=== PATIENT | male | born 1980 | race Caucasian/White ===

== ENCOUNTER 2022-05-12 10:53 | Outpatient (CLI) | payer SELFPAY ==
[2022-05-12 21:57] LABS: Albumin* 4.9 g/dL (3.3-5.0); Chloride* 103 mmol/L (96-114)
[2022-05-12 21:58] LABS: Sodium* 140 mmol/L (135-149)
[2022-05-12 22:00] LABS: Alkaline Phosphatase* 64 U/L (40-150); Aspartate Amino Transferase* 28 U/L (12-35); Bilirubin Direct* 0.3 mg/dL (0.0-0.5); Bilirubin Total* 0.6 mg/dL (0.1-1.5); Blood Urea Nitrogen* 18 mg/dL (5-24); Carbon Dioxide* 32 mmol/L (20-32); Cholesterol* 187 mg/dL (90-199); Creatinine* 1.2 mg/dL (0.5-1.5); Estimated Glomerular Filt Rate 77 ml/min; Glucose* 105 mg/dL (60-115); Total Protein* 7.5 g/dL (6.0-8.3); Triglycerides* 96 mg/dL (40-149)
[2022-05-12 22:01] LABS: Alanine Aminotransferase* 42 U/L (4-50); Calcium* 9.6 mg/dL (8.4-10.6); HDL Cholesterol* 42 mg/dL (>=40); LDL Cholesterol Calculated 126 mg/dL (<100)
== END 2022-05-12 10:54 | disposition home or self-care (01) ==
PROVIDERS: PCP Family Medicine; Visit Provider Family Medicine
DX: Z00.00 Encounter for general adult medical examination without abnormal findings (principal); R79.89 Other specified abnormal findings of blood chemistry; Z13.6 Encounter for screening for cardiovascular disorders
CPT/HCPCS: 80048; 80061; 80076

== ENCOUNTER 2023-07-09 14:14 | Outpatient (CLI) | payer OTHER, SELFPAY | END 2023-07-09 14:15 | disposition home or self-care (01) | PROVIDERS: PCP Family Medicine; Visit Provider Family Medicine | DX: E78.00 Pure hypercholesterolemia, unspecified (principal); R79.89 Other specified abnormal findings of blood chemistry | CPT/HCPCS: 80053; 80061 ==

== ENCOUNTER 2024-03-16 10:19 | Inpatient (IN) | payer BC, SELFPAY ==
[2024-03-16] VITALS (43 sets, daily range): BP systolic 102–140; BP diastolic 59–79; PULSE 64–120; RESP 16–24; TEMP 37.2–37.7; O2SAT 85–93; BMI 23.1; BMI 26.4
--- NOTE | 2024-03-16 11:06 | ED.SOB ---
HPI - SOB/Dyspnea General Chief Complaint: Shortness of Breath/Dyspnea Stated Complaint: clinic said to come in pnemonia Time Seen by Provider: 03/16/24 10:49 History of Present Illness HPI Narrative: This 43 year old male presented to urgent care and was sent here because his oximetry was at 90% on room air. He states that he began having some upper respiratory symptoms almost 3 weeks ago as did other members in his family. About 10 days ago he had worsening symptoms with fever lasting about 4 days with body aches and pains, cough, and congestion. He was thinking that he had the flu. He improved but more recently he feels short of breath. He continues to have a cough. He had a chest x-ray done at urgent care and was sent here. Related Data Home Medications ?Medication ?Instructions ?Recorded ?Confirmed No Known Home Medications 05/12/22 03/16/24 Allergies Allergy/AdvReac Type Severity Reaction Status Date / Time No Known Allergies Allergy Unknown Unknown Verified 03/16/24 10:27 Review of Systems Status of ROS: Reports: 10 or more systems reviewed and unremarkable except as noted in History and below Narrative: Constitutional: No fevers, no weight gain or loss. Eyes: No discharge. No vision changes. HENT: No congestion, no sore throat, no ear pain. Cardiovascular: No chest pain, no palpitations. Respiratory: Cough with shortness of breath. Gastrointestinal: No abdominal pain, no vomiting, no diarrhea. Genitourinary: No dysuria, no hematuria. Musculoskeletal: Normal range of motion. Skin: No rashes, no pruritis. Neurological: No dizziness, weakness, sensory change, speech change. Endo/Heme/Allergies: No bruising or bleeding. No polydipsia. Pysch: no suicidality, no anxiety, no insomnia. All other systems reviewed and are negative. [facility] Medical History (Updated 03/16/24 @ 15:00 by Amando Walsh MD) Hypercholesteremia ?E78.00 - Pure hypercholesterolemia, unspecified (ICD-10) Triquetral chip fracture ?S62.113A - Displaced fracture of triquetrum [cuneiform] bone, unspecified wrist, initial encounter for closed fracture (ICD-10) Family History (Updated 05/09/22 @ 08:03 by Jeana Cerna ~ PSR) Maternal Grandfather Heart disease, Onset Age: 60 Family/Other Prostate cancer Social History (Updated 09/14/22 @ 13:03 by Daria Maddox ~ [facility], [facility]) Narrative: Non smoker Does not use illicit drugs Does not drink alcohol Smoking Status: Former smoker What tobacco products do you use: cigarettes Smoking quit date/years: >15 years ago Caffeine: Yes Exam Narrative: Exam Narrative: Constitutional: Well-developed, well-nourished, no acute distress. HEENT: Normocephalic, atraumatic. Neck: Normal range of motion. Nontender. Supple. Heart: Regular. No murmurs. Normal rate. Intact distal pulses. Lungs: No use of accessory muscles for breathing. The patient coughs when taking a deep breath. Shallow breaths are clear bilaterally. Abdomen: Normal bowel sounds. Nontender. No rebound tenderness. Genitalia: Deferred. Back: No midline tenderness. Normal range of motion. Extremities: Normal range of motion. No injury. Skin: Intact. No rash. Warm. No erythema or pallor. Neurologic: No altered sensation. No weakness. Alert and oriented. Psychiatric: No suicidality. No anxiety or depression. No insomnia. Nursing notes and vitals signs are reviewed. Const: Vital Signs, click to edit/add: Vital Signs - 24 hr 03/16/24 10:23 03/16/24 10:28 03/16/24 10:35 Temperature 99.8 F H Pulse Rate Pulse Rate [Right Pulse Oximeter] 110 H Respiratory Rate 24 Blood Pressure Blood Pressure [Ri ght Upper Arm] 140/79 H Pulse Oximetry 90 89 88 Oxygen Delivery Me thod Room Air Nasal Cannula Room Air Oxygen Flow Rate 1 03/16/24 10:39 03/16/24 10:41 03/16/24 10:45 Temperature Pulse Rate 99 95 Pulse Rate [Right Pulse Oximeter] Respiratory Rate Blood Pressure Blood Pressure [Ri ght Upper Arm] Pulse Oximetry 90 88 88 Oxygen Delivery Me thod Nasal Cannula Nasal Cannula Oxygen Flow Rate 2 2 2 03/16/24 11:00 03/16/24 11:02 03/16/24 11:15 Temperature Pulse Rate 100 99 93 Pulse Rate [Right Pulse Oximeter] Respiratory Rate Blood Pressure 121/78 Blood Pressure [Ri ght Upper Arm] Pulse Oximetry 86 L 92 86 L Oxygen Delivery Me thod Nasal Cannula Nasal Cannula Nasal Cannula Oxygen Flow Rate 2 2 2 03/16/24 11:30 03/16/24 11:32 03/16/24 11:45 Temperature Pulse Rate 120 H 109 H 111 H Pulse Rate [Right Pulse Oximeter] Respiratory Rate Blood Pressure 122/71 Blood Pressure [Ri ght Upper Arm] Pulse Oximetry 90 86 L 85 L Oxygen Delivery Me thod Nasal Cannula Nasal Cannula Nasal Cannula Oxygen Flow Rate 2 3 3 03/16/24 12:00 03/16/24 12:02 03/16/24 12:15 Temperature Pulse Rate 110 H 110 H 108 H Pulse Rate [Right Pulse Oximeter] Respiratory Rate Blood Pressure 116/77 Blood Pressure [Ri ght Upper Arm] Pulse Oximetry 88 87 L 93 Oxygen Delivery Me thod Nasal Cannula Nasal Cannula Nasal Cannula Oxygen Flow Rate 3 2 2 03/16/24 12:30 03/16/24 12:32 03/16/24 12:45 Temperature Pulse Rate 93 107 H 103 H Pulse Rate [Right Pulse Oximeter] Respiratory Rate Blood Pressure 107/67 Blood Pressure [Ri ght Upper Arm] Pulse Oximetry 92 89 88 Oxygen Delivery Me thod Nasal Cannula Nasal Cannula Nasal Cannula Oxygen Flow Rate 2 2 2 03/16/24 13:00 03/16/24 13:02 03/16/24 13:03 Temperature Pulse Rate 97 92 92 Pulse Rate [Right Pulse Oximeter] Respiratory Rate Blood Pressure 102/76 Blood Pressure [Ri ght Upper Arm] Pulse Oximetry 89 91 89 Oxygen Delivery Me thod Nasal Cannula Nasal Cannula Nasal Cannula Oxygen Flow Rate 2 2 2 03/16/24 13:15 03/16/24 13:30 03/16/24 13:32 Temperature Pulse Rate 92 100 94 Pulse Rate [Right Pulse Oximeter] Respiratory Rate Blood Pressure 112/78 Blood Pressure [Ri ght Upper Arm] Pulse Oximetry 88 87 L 88 Oxygen Delivery Me thod Nasal Cannula Nasal Cannula Nasal Cannula Oxygen Flow Rate 2 2 2 03/16/24 13:45 03/16/24 14:00 03/16/24 14:07 Temperature Pulse Rate 90 91 96 Pulse Rate [Right Pulse Oximeter] Respiratory Rate Blood Pressure 117/74 Blood Pressure [Ri ght Upper Arm] Pulse Oximetry 87 L 85 L 89 Oxygen Delivery Me thod Nasal Cannula Nasal Cannula Nasal Cannula Oxygen Flow Rate 2 2 2 03/16/24 14:08 03/16/24 14:15 03/16/24 14:30 Temperature Pulse Rate 95 94 98 Pulse Rate [Right Pulse Oximeter] Respiratory Rate Blood Pressure Blood Pressure [Ri ght Upper Arm] Pulse Oximetry 87 L 86 L 86 L Oxygen Delivery Me thod Nasal Cannula Nasal Cannula Nasal Cannula Oxygen Flow Rate 2 2 2 03/16/24 14:32 03/16/24 14:45 Temperature Pulse Rate 98 105 H Pulse Rate [Right Pulse Oximeter] Respiratory Rate Blood Pressure 112/68 Blood Pressure [Ri ght Upper Arm] Pulse Oximetry 87 L 89 Oxygen Delivery Me thod Nasal Cannula Nasal Cannula Oxygen Flow Rate 2 2 Course Vital Signs Vital signs: Initial Vital Signs Temperature 99.8 F H 03/16/24 10:23 Temperature Source Temporal Artery Scan 03/16/24 10:23 Pulse Rate 110 H 03/16/24 10:23 Pulse Rhythm Regular 03/16/24 10:23 Respiratory Rate 24 03/16/24 10:23 Blood Pressure 140/79 H 03/16/24 10:23 Blood Pressure Mean 99 03/16/24 10:23 Blood Pressure Position Supine 03/16/24 10:23 Pulse Oximetry 90 03/16/24 10:23 Oxygen Delivery Method Room Air 03/16/24 10:23 Vital Signs Temperature 99.8 F H 03/16/24 10:23 Pulse Rate 110 H 03/16/24 10:23 Respiratory Rate 24 03/16/24 10:23 Blood Pressure 140/79 H 03/16/24 10:23 Pulse Oximetry 90 03/16/24 10:23 Oxygen Delivery Method Room Air 03/16/24 10:23 Temperature 99.8 F H 03/16/24 10:23 Pulse Rate 105 H 03/16/24 14:45 Respiratory Rate 24 03/16/24 10:23 Blood Pressure 112/68 03/16/24 14:32 Pulse Oximetry 89 03/16/24 14:45 Oxygen Delivery Method Nasal Cannula 03/16/24 14:45 Oxygen Flow Rate 2 03/16/24 14:45 Medications Administered Medications: Discontinued Medications Generic Name Dose Route Start Last Admin Trade Name Freq PRN Reason Stop Dose Admin Albuterol/Ipratropium 1 neb 03/16/24 11:03 03/16/24 11:10 Iprat-Albut 0.5-2.5 Mg/3 Ml Neb IH 03/16/24 11:04 1 neb ONCE ONE Administration Dexamethasone 10 mg 03/16/24 11:03 03/16/24 11:10 Dexamethasone 10 Mg/Ml Inj PO 03/16/24 11:04 10 mg ONCE ONE Administration MDM - SOB/Dyspnea MDM Narrative Medical decision making narrative: This patient comes in with shortness of breath and has oximetry at 88% on room air initially. He was placed on 2 L nasal cannula oxygen and his oximetry still hovers around 90% with this oxygen support. Chest x-ray was obtained at urgent care and shows no acute findings. Labs are acquired here and these are also reassuring. The patient did receive an oral dose of dexamethasone 10 mg and a DuoNeb. Incentive spirometry was also performed to help improve his breathing. There were times when he takes a deep breath that his oximetry can improve but he his baseline continues after a few hours of observation to have oximetry at 88-90% with 2 L oxygen supplementation by nasal cannula. The patient did get up to the restroom and states that he was feeling lightheaded when he did so. I spoke with the hospitalist on-call, Dr. Marinelli, who agrees to his admission into the hospital for ongoing management. Lab Data Labs: Lab Results 03/16/24 Range/Units 10:40 WBC 5.87 (4.50-11.00) K/uL RBC 4.92 (4.30-5.90) m/uL Hgb 15.1 (13.5-17.5) gm/dL Hct 43.8 (37.0-53.0) % MCV 89 (80-100) fL MCH 31 (26-34) pg MCHC 35 (32-36) gm/dL RDW Coeff of Yamileth 11.5 (11.5-15.5) % Plt Count 207 (140-440) K/uL Neut % (Auto) 80.9 H (42.0-72.0) % Lymph % (Auto) 10.4 L (20-44) % [place] % (Auto) 6.0 (0.0-11.0) % Eos % (Auto) 1.2 (0.0-7.0) % Baso % (Auto) 0.3 (0.0-3.0) % Neut # (Auto) 4.70 (1.7-7.0) K/uL Lymph # (Auto) 0.60 L (0.90-2.90) K/uL [place] # (Auto) 0.40 (0.00-0.90) K/UL Eos # (Auto) 0.07 (0.00-0.50) K/uL Baso # (Auto) 0.02 (0.00-0.30) K/uL Abs Immat Gran (auto) 0.07 (0.00-0.30) K/uL Imm/Tot Granulo (auto) 1.2 % Sodium 133 L (135-149) mmol/L Potassium 4.1 (3.6-5.1) mmol/L Chloride 96 (96-114) mmol/L Carbon Dioxide 24 (20-32) mmol/L Anion Gap 13 (7-15) mEq/L BUN 15 (5-24) mg/dL Creatinine 1.0 (0.5-1.5) mg/dL Estimated Creat Clear 102.81 Estimated GFR 95 ml/min Glucose 112 (60-115) mg/dL Calcium 8.7 (8.4-10.6) mg/dL Discharge Plan Discharge Clinical Impression: Hypoxia, Acute lower respiratory infection Prescriptions: No Action No Known Home Medications Follow Up/Referrals: Liban Soni MD [Primary Care Provider] -
[2024-03-16] MEDS: IPRAT-ALBUT 0.5-2.5 MG/3 ML NEB 1 NEB IH (11:10)
[2024-03-16] MEDS: dexAMETHasone 10 MG/ML inj PO (11:10)
[2024-03-16 11:12] LABS: Basophils Absolute Auto 0.02 K/uL (0.00-0.30); Basophils Percent Auto 0.3 % (0.0-3.0); Eosinophils Absolute Auto 0.07 K/uL (0.00-0.50); Eosinophils Percent Auto 1.2 % (0.0-7.0); Hematocrit 43.8 % (37.0-53.0); Hemoglobin* 15.1 gm/dL (13.5-17.5); Immature Granulocytes Abs Auto 0.07 K/uL (0.00-0.30); Immature Granulocytes Pct Auto 1.2 %; Lymphocytes Percent Auto 10.4 % (20-44); Mean Corpuscular HGB Conc 35 gm/dL (32-36); Mean Corpuscular Hemoglobin 31 pg (26-34); Mean Corpuscular Volume 89 fL (80-100); Neutrophils Percent Auto 80.9 % (42.0-72.0); Platelet Count* 207 K/uL (140-440); RDW Coefficient of Variation % 11.5 % (11.5-15.5); Red Blood Count 4.92 m/uL (4.30-5.90); White Blood Count* 5.87 K/uL (4.50-11.00)
[2024-03-16 11:17] LABS: Slide Review Reflex No
[2024-03-16 11:24] LABS: Chloride* 96 mmol/L (96-114); Potassium* 4.1 mmol/L (3.6-5.1); Sodium* 133 mmol/L (135-149)
[2024-03-16 11:26] LABS: Est. Creatinine Clearance* 102.81; Estimated Glomerular Filt Rate 95 ml/min
[2024-03-16 11:27] LABS: Anion Gap 13 mEq/L (7-15); Blood Urea Nitrogen* 15 mg/dL (5-24); Calcium* 8.7 mg/dL (8.4-10.6); Carbon Dioxide* 24 mmol/L (20-32); Glucose* 112 mg/dL (60-115)
[2024-03-16 15:11] LABS: SARS PCR* Negative SARS-CoV-2 (Negative)
--- NOTE | 2024-03-16 15:14 | PM.IMHP1 ---
Hospitalist- H&P: HPI History of Present Illness Date Seen: 03/16/24 Chief complaint: clinic said to come in pnemonia Narrative: Chas Kline is a 43 year old male who presented to the ER at the behest of the Urgent Care for acute hypoxic respiratory failure. He's been sick for approximately 9 days; at onset of illness, had fever of 103 and has had intermittent fevers since. Intermittent cough, decreased appetite, vomiting mid-week (none in the last 72 hours). and children also ill with URI symptoms last week; they have all recovered ( and one daughter treated with abx). Shortness of breath (without chest pain) noted in the past 2 days, which is what prompted his Urgent Care visit this morning. ER Course and Findings: - hypoxia with oxygen saturation as low as 85% in ER, supplemental oxygen placed - temperature of 100.9 - reassuring WBC, mild lymphopenia, Sodium of 133 - reassuring EKG, no acute abnormalies on CXR, negative COVID - given DuoNeb and Dexamethasone without significant improvement in symptoms or oxygen need Review of Systems Narrative: - decreased po intake, down about 10 pounds since illness. A few episodes of vomiting early in illness, no abdominal pain - no skin rashes or lesions - no recent travel, no h/o blood clots PFSH PFS Medical History (Updated 03/16/24 @ 16:47 by Martha Marinelli MD) Elevated LFTs ?R79.89 - Other specified abnormal findings of blood chemistry (ICD-10) Right wrist fracture ?S62.101A - Fracture of unspecified carpal bone, right wrist, initial encounter for closed fracture (ICD-10) Hypercholesteremia ?E78.00 - Pure hypercholesterolemia, unspecified (ICD-10) Triquetral chip fracture ?S62.113A - Displaced fracture of triquetrum [cuneiform] bone, unspecified wrist, initial encounter for closed fracture (ICD-10) Family History (Updated 05/09/22 @ 08:03 by Jeana Cerna ~ PSR) Maternal Grandfather Heart disease, Onset Age: 60 Family/Other Prostate cancer Social History (Updated 03/16/24 @ 16:01 by Martha Marinelli MD) Narrative: Lives with Vahid (medical decision maker if needed) and children. 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 Nonsmoker, no drugs or ETOH. Smoking Status: Former smoker What tobacco products do you use: cigarettes Smoking quit date/years: >15 years ago Caffeine: Yes Meds Home Medications and Allergies Home Medications ?Medication ?Instructions ?Recorded ?Confirmed ?Type No Known Home Medications 05/12/22 03/16/24 History Allergies Allergy/AdvReac Type Severity Reaction Status Date / Time No Known Allergies Allergy Unknown Unknown Verified 03/16/24 10:27 Exam Narrative: Exam Narrative: GEN: Alert and oriented, sitting comfortably in bedside chair, wearing supplemental oxygen HEENT: EOMIs bilaterally, no scleral icterus CV: RRR (HR 90s during my exam), no concerning murmurs R: Rhonchi throughout bilateral lung mcneil, no wheezing Ext: wwp, no concerning edema Skin: No concerning skin lesions or rashes on exposed skin Neuro: Nonfocal Psych: Appropriate Const: Vital Signs, click to edit/add: Vital Signs - 24 hr 03/16/24 10:23 03/16/24 10:28 03/16/24 10:35 Temperature 99.8 F H Pulse Rate Pulse Rate [Right Pulse Oximeter] 110 H Respiratory Rate 24 Blood Pressure Blood Pressure [Ri ght Upper Arm] 140/79 H Pulse Oximetry 90 89 88 Oxygen Delivery Me thod Room Air Nasal Cannula Room Air Oxygen Flow Rate 1 03/16/24 10:39 03/16/24 10:41 03/16/24 10:45 Temperature Pulse Rate 99 95 Pulse Rate [Right Pulse Oximeter] Respiratory Rate Blood Pressure Blood Pressure [Ri ght Upper Arm] Pulse Oximetry 90 88 88 Oxygen Delivery Me thod Nasal Cannula Nasal Cannula Oxygen Flow Rate 2 2 2 03/16/24 11:00 03/16/24 11:02 03/16/24 11:15 Temperature Pulse Rate 100 99 93 Pulse Rate [Right Pulse Oximeter] Respiratory Rate Blood Pressure 121/78 Blood Pressure [Ri ght Upper Arm] Pulse Oximetry 86 L 92 86 L Oxygen Delivery Me thod Nasal Cannula Nasal Cannula Nasal Cannula Oxygen Flow Rate 2 2 2 03/16/24 11:30 03/16/24 11:32 03/16/24 11:45 Temperature Pulse Rate 120 H 109 H 111 H Pulse Rate [Right Pulse Oximeter] Respiratory Rate Blood Pressure 122/71 Blood Pressure [Ri ght Upper Arm] Pulse Oximetry 90 86 L 85 L Oxygen Delivery Me thod Nasal Cannula Nasal Cannula Nasal Cannula Oxygen Flow Rate 2 3 3 03/16/24 12:00 03/16/24 12:02 03/16/24 12:15 Temperature Pulse Rate 110 H 110 H 108 H Pulse Rate [Right Pulse Oximeter] Respiratory Rate Blood Pressure 116/77 Blood Pressure [Ri ght Upper Arm] Pulse Oximetry 88 87 L 93 Oxygen Delivery Me thod Nasal Cannula Nasal Cannula Nasal Cannula Oxygen Flow Rate 3 2 2 03/16/24 12:30 03/16/24 12:32 03/16/24 12:45 Temperature Pulse Rate 93 107 H 103 H Pulse Rate [Right Pulse Oximeter] Respiratory Rate Blood Pressure 107/67 Blood Pressure [Ri ght Upper Arm] Pulse Oximetry 92 89 88 Oxygen Delivery Me thod Nasal Cannula Nasal Cannula Nasal Cannula Oxygen Flow Rate 2 2 2 03/16/24 13:00 03/16/24 13:02 03/16/24 13:03 Temperature Pulse Rate 97 92 92 Pulse Rate [Right Pulse Oximeter] Respiratory Rate Blood Pressure 102/76 Blood Pressure [Ri ght Upper Arm] Pulse Oximetry 89 91 89 Oxygen Delivery Me thod Nasal Cannula Nasal Cannula Nasal Cannula Oxygen Flow Rate 2 2 2 03/16/24 13:15 03/16/24 13:30 03/16/24 13:32 Temperature Pulse Rate 92 100 94 Pulse Rate [Right Pulse Oximeter] Respiratory Rate Blood Pressure 112/78 Blood Pressure [Ri ght Upper Arm] Pulse Oximetry 88 87 L 88 Oxygen Delivery Me thod Nasal Cannula Nasal Cannula Nasal Cannula Oxygen Flow Rate 2 2 2 03/16/24 13:45 03/16/24 14:00 03/16/24 14:07 Temperature Pulse Rate 90 91 96 Pulse Rate [Right Pulse Oximeter] Respiratory Rate Blood Pressure 117/74 Blood Pressure [Ri ght Upper Arm] Pulse Oximetry 87 L 85 L 89 Oxygen Delivery Me thod Nasal Cannula Nasal Cannula Nasal Cannula Oxygen Flow Rate 2 2 2 03/16/24 14:08 03/16/24 14:15 03/16/24 14:30 Temperature Pulse Rate 95 94 98 Pulse Rate [Right Pulse Oximeter] Respiratory Rate Blood Pressure Blood Pressure [Ri ght Upper Arm] Pulse Oximetry 87 L 86 L 86 L Oxygen Delivery Me thod Nasal Cannula Nasal Cannula Nasal Cannula Oxygen Flow Rate 2 2 2 03/16/24 14:32 03/16/24 14:45 Temperature Pulse Rate 98 105 H Pulse Rate [Right Pulse Oximeter] Respiratory Rate Blood Pressure 112/68 Blood Pressure [Ri ght Upper Arm] Pulse Oximetry 87 L 89 Oxygen Delivery Me thod Nasal Cannula Nasal Cannula Oxygen Flow Rate 2 2 Hospitalist - H&P: Result Labs Labs: Short CBC 03/16/24 Range/Units 10:40 WBC 5.87 (4.50-11.00) K/uL Hgb 15.1 (13.5-17.5) gm/dL Hct 43.8 (37.0-53.0) % Plt Count 207 (140-440) K/uL BMP 03/16/24 10:40 Sodium 133 L Potassium 4.1 Chloride 96 Carbon Dioxide 24 BUN 15 Creatinine 1.0 Glucose 112 Calcium 8.7 Assessment and Plan Assessment and plan (1) Acute hypoxic respiratory failure: Problem comment: - presumed infectious given fever and sick contacts (viral vs bacterial), ddx includes atypical PE or malignancy - check influenza/RSV; if negative, will obtain CTA of chest to evaluate further - deferring abx at this time given reassuring CXR; if negative influenza and + CT chest, will initiate Status: Acute (2) Fever: Status: Acute (3) Hyponatremia: Problem comment: - mild, presumably 2/2 poor po intake and increased free water intake in the setting of acute illness - encourage solute intake, follow Na Status: Acute Plan - per above - Full Code - updated at bedside, questions answered
--- NOTE | 2024-03-16 15:20 | ED.NURSE ---
Pt report given to kenia Garcia RN. Pt to room 255.
[2024-03-16 16:38] LABS: PCR FLU A Negative PCR FLU A (Negative); PCR FLU B Negative PCR FLU B (Negative); PCR RSV Negative PCR RSV (Negative); SARS PCR* Negative SARS-CoV-2 (Negative)
--- NOTE | 2024-03-16 16:48 | CRLHL7_ITS ---
For Patients: As a result of the Century Cures Act, medical imaging exams and procedure reports are released immediately into your electronic medical record. You may view this report before your referring provider. If you have questions, please contact your health care provider. INDICATION: Hypoxia. Shortness of breath. TECHNIQUE: Axial intravenously infused CT cuts were performed from the thoracic inlet to the upper abdomen during the peak phase of pulmonary arterial contrast opacification. 95 mL of Isovue-370 has been injected intravenously. COMPARISON: Plain radiograph 03/16/2024. Findings : There are no pulmonary emboli. There is no aortic aneurysms or dissections. There are innumerable minute nodules throughout both lungs. There is mild dependent atelectasis in both lower lobes. There is a trace of pleural fluid bilaterally. There is no pericardial effusion. There are no enlarged hilar, mediastinal or axillary lymph nodes. There are few small liver cysts. The spleen, pancreas, adrenals and upper poles of both kidneys appear normal. There are no lytic sclerotic skeletal lesions. IMPRESSION: 1. Negative for pulmonary emboli. 2. There are innumerable minute bilateral pulmonary nodules. Considerations would include fungal infection and typical or atypical mycobacterial infections. Please note that all CT scans at this facility use dose modulation, iterative reconstruction, and/or weight-based dosing when appropriate to reduce radiation dose to as low as reasonably achievable. Dictated by Juan Miguel Lopez MD @ 03/16/2024 5:46:42 PM (Electronically Signed)
[2024-03-16 17:46] LABS: Procalcitonin* 0.06 ng/mL (<0.50)
[2024-03-16] MEDS: AZITHROMYCIN 250 MG TABLET 500 MG PO (18:40)
[2024-03-16] MEDS: cefTRIAXone 2 GM in 0.9 % SODIUM CHLORIDE Mini-bag 100 ML IVPB (18:40)
--- NOTE | 2024-03-16 19:32 | PC.NURSE ---
Admission: The patient presents to the floor pleasant and cooperative during cares. Hypoxia noted on RA. Per RT recommendation the patient was placed on HF NC. The patient is tolerating this well, instructed to wear NC to NR when ambulating. Up ad chinyere as long as he is not dizzy. No reports of pain. IV abx and PO abx were given. Had a decent amount for dinner this shift, PO fluid intake is reassuring. Radha LYON BSN
[2024-03-16] MEDS: SODIUM CHLORIDE 0.9 % (FLUSH) 10 ML SYRINGE 5 ML IVF (20:11)
[2024-03-16 21:46] LABS: Legionella pneumo Ag Urine L. pneumo Negative (Negative); S pneumo Ag Urine S. pneumo Negative (Negative)
[2024-03-17] VITALS (20 sets, daily range): BP systolic 103–120; BP diastolic 57–71; PULSE 69–84; RESP 16–20; TEMP 36.7–37.1; O2SAT 87–93
[2024-03-17 04:18] LABS: HIV 1/2/P24 Combo Screen* Negative (Negative)
--- NOTE | 2024-03-17 06:40 | PC.NURSE ---
Pt alert and oriented x3. Afebrile.?Pt denies pain and N/V. Pt on High flow nasal cannula throughout night, tolerating while awake, pt reports difficulties sleeping with High flow noise, ear plugs given, and PRN melatonin offered pt declined. High flow settings turned up from 25?FIO2, 30L O2, 36 F to 30 FIO2 to 35L O2, 36 F to maintain O2 stats of 89% and above.?Pt up ad chinyere in room, voiding, and tolerating regular diet.
[2024-03-17 06:46] LABS: Basophils Absolute Auto 0.02 K/uL (0.00-0.30); Basophils Percent Auto 0.3 % (0.0-3.0); Eosinophils Absolute Auto 0.02 K/uL (0.00-0.50); Eosinophils Percent Auto 0.3 % (0.0-7.0); Hematocrit 40.1 % (37.0-53.0); Immature Granulocytes Abs Auto 0.09 K/uL (0.00-0.30); Immature Granulocytes Pct Auto 1.2 %; Lymphocytes Percent Auto 17.3 % (20-44); Mean Corpuscular HGB Conc 35 gm/dL (32-36); Mean Corpuscular Hemoglobin 31 pg (26-34); Mean Corpuscular Volume 88 fL (80-100); Neutrophils Absolute Auto 5.34 K/uL (1.7-7.0); Neutrophils Percent Auto 70.9 % (42.0-72.0); Platelet Count* 239 K/uL (140-440); RDW Coefficient of Variation % 11.5 % (11.5-15.5); Red Blood Count 4.58 m/uL (4.30-5.90); White Blood Count* 7.52 K/uL (4.50-11.00)
[2024-03-17 06:47] LABS: Albumin* 3.8 g/dL (3.3-5.0); Chloride* 101 mmol/L (96-114)
[2024-03-17 06:48] LABS: Potassium* 3.7 mmol/L (3.6-5.1); Sodium* 135 mmol/L (135-149)
[2024-03-17 06:50] LABS: Bilirubin Total* 0.4 mg/dL (0.1-1.5); Creatinine* 0.9 mg/dL (0.5-1.5); Est. Creatinine Clearance* 94.52; Estimated Glomerular Filt Rate 108 ml/min
[2024-03-17 06:51] LABS: Alanine Aminotransferase* 26 U/L (4-50); Alkaline Phosphatase* 44 U/L (40-150); Anion Gap 10 mEq/L (7-15); Aspartate Amino Transferase* 30 U/L (12-35); Blood Urea Nitrogen* 17 mg/dL (5-24); Calcium* 8.8 mg/dL (8.4-10.6); Carbon Dioxide* 24 mmol/L (20-32); Glucose* 118 mg/dL (60-115); Total Protein* 6.7 g/dL (6.0-8.3)
[2024-03-17 06:53] LABS: C Reactive Protein* 6.4 mg/dL (0.5-1.0)
[2024-03-17 07:08] LABS: Procalcitonin* 0.06 ng/mL (<0.50)
[2024-03-17 08:01] LABS: Slide Review Reflex Yes
[2024-03-17 08:02] LABS: Slide Review Acceptable Review (Acceptable)
[2024-03-17] MEDS: SODIUM CHLORIDE 0.9 % (FLUSH) 10 ML SYRINGE 5 ML IVF (09:04)
--- NOTE | 2024-03-17 10:49 | P.IMPN_ITS ---
Progress Note: A&P Assessment and plan (1) Acute hypoxic respiratory failure: Problem details: - presumed infectious given fever and sick contacts (viral vs bacterial), ddx includes atypical pneumonia or malignancy - negative for RSV/flu/COVID, strep pneumo or Legionella, HIV - CTA negative for PE, concern for possible fungal vs Mycobacterium - reviewed with Dr. Woodard of Pulmonology; no need for empiric fungal coverage unless significant decline in status (and would consider transfer if that were the case), urinary antigens for Blastomycoses and Histoplasmosis collected on 03/16/24 and sent on the morning of 03/17/24 - Ceftriaxone and Azithromycin (03/16/24) Status: Acute (2) Fever: Status: Acute (3) Hyponatremia: Problem details: - mild, presumably 2/2 poor po intake and increased free water intake in the setting of acute illness - encourage solute intake, follow Na Status: Acute Plan 1. Reviewed impression with patient and 2. Answered their questions. 3. Continue with current treatment and assessment plan 4. Await results of urine antigen for histoplasmosis and blastomycosis before making additional decisions at this juncture. The studies take 1-2 days to complete after received in the laboratory. The samples were submitted to the [facility] on the morning of 03/17/2024. Time Spent With Patient Total time spent: 30 minutes Subjective Date Seen: 03/17/24 Interval history: Hospital day 2. Admission history of present illness: ?Chas Kline is a 43 year old male who presented to the ER at the behest of the Urgent Care for acute hypoxic respiratory failure. He's been sick for approximately 9 days; at onset of illness, had fever of 103 and has had intermittent fevers since. Intermittent cough, decreased appetite, vomiting mid-week (none in the last 72 hours). and children also ill with URI symptoms last week; they have all recovered ( and one daughter treated with abx). Shortness of breath (without chest pain) noted in the past 2 days, which is what prompted his Urgent Care visit this morning. ?ER Course and Findings: - hypoxia with oxygen saturation as low as 85% in ER, supplemental oxygen placed - temperature of 100.9 - reassuring WBC, mild lymphopenia, Sodium of 133 - reassuring EKG, no acute abnormalies on CXR, negative COVID - given DuoNeb and Dexamethasone without significant improvement in symptoms or oxygen need? Additionally: - CTA angiogram: IMPRESSION: 1. Negative for pulmonary emboli. 2. There are innumerable minute bilateral pulmonary nodules. Considerations would include fungal infection and typical or atypical mycobacterial infections. - Reviewed case with Dr. Woodard of Pulmonology; would not empirically treat for fungal disease at this time. Urinary Blastomycoses and Histoplasmosis antigens have been sent and pending. Cover with Azithromycin and Ceftriaxone (notably; both daughter and who were sick improved with Azithromycin treatment), monitor closely. Consider ID consult if not improving or worsening. -Flo carter. Hunting off and on since December 2023 this season. 03/17/2024: Patient states he feels a little better today. Still has dry hacky cough. Nonproductive. While sitting in bed he does not notice dyspnea. Indicates he has been defervescing over the last 2-3 days. Since arrival to the hospital T-max was 101? F. Currently afebrile. Tolerating high-flow, warm, humidified oxygen at 35 liters/minute via nasal cannula continuously. Utilizing Aerobika device. Exam Narrative: Exam Narrative: I evaluated him in his hospital room. Appears comfortable and in no acute distress. High-flow oxygen at 35 liters/minute. No icterus or jaundice. No cyanosis, petechiae, or rashes. Lungs with scattered rales and rhonchi without wheezing bilateral lung mcneil. Heart tones with regular rhythm, normal S1-S2. Abdomen is active bowel sounds, soft, nontender. No focal motor neurologic deficits. No edema and capillary refill less than 3 seconds. Const: Vital Signs, click to edit/add: Vital Signs - 24 hr 03/16/24 11:00 03/16/24 11:02 03/16/24 11:15 Temperature Pulse Rate 100 99 93 Pulse Rate [Left P ulse Oximeter] Respiratory Rate Blood Pressure 121/78 Blood Pressure [Le ft Arm] Pulse Oximetry 86 L 92 86 L Oxygen Delivery Me thod Nasal Cannula Nasal Cannula Nasal Cannula Oxygen Flow Rate 2 2 2 Fraction of Inspir ed Oxygen 03/16/24 11:30 03/16/24 11:32 03/16/24 11:45 Temperature Pulse Rate 120 H 109 H 111 H Pulse Rate [Left P ulse Oximeter] Respiratory Rate Blood Pressure 122/71 Blood Pressure [Le ft Arm] Pulse Oximetry 90 86 L 85 L Oxygen Delivery Me thod Nasal Cannula Nasal Cannula Nasal Cannula Oxygen Flow Rate 2 3 3 Fraction of Inspir ed Oxygen 03/16/24 12:00 03/16/24 12:02 03/16/24 12:15 Temperature Pulse Rate 110 H 110 H 108 H Pulse Rate [Left P ulse Oximeter] Respiratory Rate Blood Pressure 116/77 Blood Pressure [Le ft Arm] Pulse Oximetry 88 87 L 93 Oxygen Delivery Me thod Nasal Cannula Nasal Cannula Nasal Cannula Oxygen Flow Rate 3 2 2 Fraction of Inspir ed Oxygen 03/16/24 12:30 03/16/24 12:32 03/16/24 12:45 Temperature Pulse Rate 93 107 H 103 H Pulse Rate [Left P ulse Oximeter] Respiratory Rate Blood Pressure 107/67 Blood Pressure [Le ft Arm] Pulse Oximetry 92 89 88 Oxygen Delivery Me thod Nasal Cannula Nasal Cannula Nasal Cannula Oxygen Flow Rate 2 2 2 Fraction of Inspir ed Oxygen 03/16/24 13:00 03/16/24 13:02 03/16/24 13:03 Temperature Pulse Rate 97 92 92 Pulse Rate [Left P ulse Oximeter] Respiratory Rate Blood Pressure 102/76 Blood Pressure [Le ft Arm] Pulse Oximetry 89 91 89 Oxygen Delivery Me thod Nasal Cannula Nasal Cannula Nasal Cannula Oxygen Flow Rate 2 2 2 Fraction of Inspir ed Oxygen 03/16/24 13:15 03/16/24 13:30 03/16/24 13:32 Temperature Pulse Rate 92 100 94 Pulse Rate [Left P ulse Oximeter] Respiratory Rate Blood Pressure 112/78 Blood Pressure [Le ft Arm] Pulse Oximetry 88 87 L 88 Oxygen Delivery Me thod Nasal Cannula Nasal Cannula Nasal Cannula Oxygen Flow Rate 2 2 2 Fraction of Inspir ed Oxygen 03/16/24 13:45 03/16/24 14:00 03/16/24 14:07 Temperature Pulse Rate 90 91 96 Pulse Rate [Left P ulse Oximeter] Respiratory Rate Blood Pressure 117/74 Blood Pressure [Le ft Arm] Pulse Oximetry 87 L 85 L 89 Oxygen Delivery Me thod Nasal Cannula Nasal Cannula Nasal Cannula Oxygen Flow Rate 2 2 2 Fraction of Inspir ed Oxygen 03/16/24 14:08 03/16/24 14:15 03/16/24 14:30 Temperature Pulse Rate 95 94 98 Pulse Rate [Left P ulse Oximeter] Respiratory Rate Blood Pressure Blood Pressure [Le ft Arm] Pulse Oximetry 87 L 86 L 86 L Oxygen Delivery Me thod Nasal Cannula Nasal Cannula Nasal Cannula Oxygen Flow Rate 2 2 2 Fraction of Inspir ed Oxygen 03/16/24 14:32 03/16/24 14:45 03/16/24 15:00 Temperature Pulse Rate 98 105 H 92 Pulse Rate [Left P ulse Oximeter] Respiratory Rate Blood Pressure 112/68 Blood Pressure [Le ft Arm] Pulse Oximetry 87 L 89 89 Oxygen Delivery Me thod Nasal Cannula Nasal Cannula Nasal Cannula Oxygen Flow Rate 2 2 3 Fraction of Inspir ed Oxygen 03/16/24 15:02 03/16/24 15:15 03/16/24 16:00 Temperature Pulse Rate 95 95 101 H Pulse Rate [Left P ulse Oximeter] Respiratory Rate Blood Pressure 105/59 L Blood Pressure [Le ft Arm] Pulse Oximetry 88 89 Oxygen Delivery Me thod Nasal Cannula Nasal Cannula Oxygen Flow Rate 3 3 Fraction of Inspir ed Oxygen 03/16/24 16:10 03/16/24 16:10 03/16/24 16:11 Temperature 99.0 F Pulse Rate Pulse Rate [Left P ulse Oximeter] 110 H Respiratory Rate 22 22 Blood Pressure Blood Pressure [Le ft Arm] 122/77 Pulse Oximetry 90 90 Oxygen Delivery Me thod Nasal Cannula CPAP Nasal Cannula Oxygen Flow Rate 3 3 Fraction of Inspir ed Oxygen 25 03/16/24 17:21 03/16/24 20:07 03/16/24 20:07 Temperature 99.3 F Pulse Rate Pulse Rate [Left P ulse Oximeter] 102 H Respiratory Rate 16 Blood Pressure Blood Pressure [Le ft Arm] 117/61 Pulse Oximetry 92 Oxygen Delivery Me thod High Flow Nasal Ca nnula Oxygen Flow Rate 30 30 Fraction of Inspir ed Oxygen 25 25 03/16/24 21:55 03/16/24 22:00 03/16/24 22:10 Temperature Pulse Rate 64 Pulse Rate [Left P ulse Oximeter] Respiratory Rate Blood Pressure Blood Pressure [Le ft Arm] Pulse Oximetry Oxygen Delivery Me thod Oxygen Flow Rate Fraction of Inspir ed Oxygen 25 30 03/16/24 22:30 03/16/24 22:30 03/17/24 00:00 Temperature 98.9 F Pulse Rate Pulse Rate [Left P ulse Oximeter] 72 Respiratory Rate 16 16 Blood Pressure Blood Pressure [Le ft Arm] 103/67 Pulse Oximetry 92 90 Oxygen Delivery Me thod High Flow Nasal Ca nnula High Flow Nasal Ca nnula Oxygen Flow Rate 30 30 Fraction of Inspir ed Oxygen 30 30 30 03/17/24 01:40 03/17/24 02:00 03/17/24 04:00 Temperature 98.6 F Pulse Rate Pulse Rate [Left P ulse Oximeter] 72 Respiratory Rate 16 Blood Pressure Blood Pressure [Le ft Arm] 109/57 L Pulse Oximetry 92 Oxygen Delivery Me thod High Flow Nasal Ca nnula Oxygen Flow Rate 35 Fraction of Inspir ed Oxygen 30 30 30 03/17/24 04:00 03/17/24 06:00 03/17/24 07:00 Temperature Pulse Rate Pulse Rate [Left P ulse Oximeter] Respiratory Rate 18 Blood Pressure Blood Pressure [Le ft Arm] Pulse Oximetry 90 Oxygen Delivery Me thod High Flow Nasal Ca nnula Oxygen Flow Rate 35 Fraction of Inspir ed Oxygen 30 30 30 03/17/24 07:00 03/17/24 07:55 03/17/24 07:57 Temperature 98.3 F Pulse Rate 71 Pulse Rate [Left P ulse Oximeter] 84 84 Respiratory Rate 18 18 Blood Pressure Blood Pressure [Le ft Arm] 107/62 Pulse Oximetry 90 Oxygen Delivery Me thod High Flow Nasal Ca nnula Oxygen Flow Rate 35 Fraction of Inspir ed Oxygen 30 03/17/24 08:00 03/17/24 10:00 Temperature Pulse Rate Pulse Rate [Left P ulse Oximeter] Respiratory Rate Blood Pressure Blood Pressure [Le ft Arm] Pulse Oximetry Oxygen Delivery Me thod Oxygen Flow Rate Fraction of Inspir ed Oxygen 30 30 Labs Labs: Laboratory Results - last 24 hr 03/16/24 03/16/24 03/16/24 10:40 14:30 14:31 WBC 5.87 RBC 4.92 Hgb 15.1 Hct 43.8 MCV 89 MCH 31 MCHC 35 RDW Coeff of Yamileth 11.5 Plt Count 207 Neut % (Auto) 80.9 H Lymph % (Auto) 10.4 L [place] % (Auto) 6.0 Eos % (Auto) 1.2 Baso % (Auto) 0.3 Neut # (Auto) 4.70 Lymph # (Auto) 0.60 L [place] # (Auto) 0.40 Eos # (Auto) 0.07 Baso # (Auto) 0.02 Abs Immat Gran (auto) 0.07 Imm/Tot Granulo (auto) 1.2 Diff Slide Review Sodium 133 L Potassium 4.1 Chloride 96 Carbon Dioxide 24 Anion Gap 13 BUN 15 Creatinine 1.0 Estimated Creat Clear 102.81 Estimated GFR 95 Glucose 112 Calcium 8.7 Total Bilirubin AST ALT Alkaline Phosphatase C-Reactive Protein Total Protein Albumin Procalcitonin 0.06 Urine L. pneumophilia Ag Urine Strep pneumoniae Ag SARS-CoV-2 (PCR) Negative SARS-CoV-2 Negative SARS-CoV-2 HIV 1&2 Ab/P24 Ag 4thGn Negative Influenza Type A (PCR) Negative PCR FLU A Influenza Type B (PCR) Negative PCR FLU B RSV (PCR) Negative PCR RSV Lab Acknowledgement Test Added 03/16/24 03/16/24 03/17/24 18:06 21:25 06:15 WBC 7.52 RBC 4.58 Hgb 14.0 Hct 40.1 MCV 88 MCH 31 MCHC 35 RDW Coeff of Yamileth 11.5 Plt Count 239 Neut % (Auto) 70.9 Lymph % (Auto) 17.3 L [place] % (Auto) 10.0 Eos % (Auto) 0.3 Baso % (Auto) 0.3 Neut # (Auto) 5.34 Lymph # (Auto) 1.30 [place] # (Auto) 0.80 Eos # (Auto) 0.02 Baso # (Auto) 0.02 Abs Immat Gran (auto) 0.09 Imm/Tot Granulo (auto) 1.2 Diff Slide Review Acceptable Review Sodium 135 Potassium 3.7 Chloride 101 Carbon Dioxide 24 Anion Gap 10 BUN 17 Creatinine 0.9 Estimated Creat Clear 94.52 Estimated GFR 108 Glucose 118 H Calcium 8.8 Total Bilirubin 0.4 AST 30 ALT 26 Alkaline Phosphatase 44 C-Reactive Protein 6.4 H Total Protein 6.7 Albumin 3.8 Procalcitonin 0.06 Urine L. pneumophilia Ag L. pneumo Negative Urine Strep pneumoniae Ag S. pneumo Negative SARS-CoV-2 (PCR) HIV 1&2 Ab/P24 Ag 4thGn Influenza Type A (PCR) Influenza Type B (PCR) RSV (PCR) Lab Acknowledgement Test Added Imaging CT scan - chest: Attestation: I have reviewed the pertinent imaging results. Radiologist's impression: 1. Negative for pulmonary emboli. 2. There are innumerable minute bilateral pulmonary nodules. Considerations would include fungal infection and typical or atypical mycobacterial infections. ECG Attestation: I personally reviewed and interpreted this ECG as follows: Interpretation: Normal sinus rhythm without dysrhythmia, ischemia, or infarct pattern. No pulmonary pattern.
[2024-03-17] MEDS: AZITHROMYCIN 250 MG TABLET 500 MG PO (18:28)
[2024-03-17] MEDS: cefTRIAXone 2 GM in 0.9 % SODIUM CHLORIDE Mini-bag 100 ML IVPB (18:29)
--- NOTE | 2024-03-17 19:43 | PC.NURSE ---
Pt alert, oriented and vitally stable. Tele read NSR. Pt up IND with NC for O2, otherwise on High flow. Pt states they were unable to sleep due to high flow noise previous night. RT consulted and allowed pt to sleep on stomach as this is most comfortable, sats in mid 90s when doing this. at bedside.
[2024-03-18] VITALS (15 sets, daily range): BP systolic 99–108; BP diastolic 61–74; PULSE 56–88; RESP 18; TEMP 36.6–37; O2SAT 91–95
[2024-03-18 06:21] LABS: HCO3 VBG 24 mmol/L (21-28); Lactate* 1.2 mmol/L (0.5-1.9); PCO2 VBG 36 mmHG (40-50); PO2 VBG 56.5 mmHG (25-47); pH VBG 7.438 (7.32-7.43)
--- NOTE | 2024-03-18 06:24 | PC.NURSE ---
19-7: The patient remains pleasant and cooperative during cares. No reports of pain this shift. Spoke to Dr Marinelli and she okayed restful night VS with continuous pulse oximetry on. HF NC on 25L and 40% Fio2 >90%. Up ad chinyere. Awaiting urine results for a possible bacterium. The patients slept the night. Radha LYON BSN
[2024-03-18 06:33] LABS: Basophils Absolute Auto 0.04 K/uL (0.00-0.30); Basophils Percent Auto 0.6 % (0.0-3.0); Eosinophils Absolute Auto 0.26 K/uL (0.00-0.50); Eosinophils Percent Auto 3.6 % (0.0-7.0); Hematocrit 46.1 % (37.0-53.0); Hemoglobin* 15.6 gm/dL (13.5-17.5); Immature Granulocytes Abs Auto 0.14 K/uL (0.00-0.30); Lymphocytes Absolute Auto 1.97 K/uL (0.90-2.90); Lymphocytes Percent Auto 27.5 % (20-44); Mean Corpuscular HGB Conc 34 gm/dL (32-36); Mean Corpuscular Hemoglobin 30 pg (26-34); Mean Corpuscular Volume 89 fL (80-100); Monocytes Percent Auto 7.3 % (0.0-11.0); Neutrophils Absolute Auto 4.24 K/uL (1.7-7.0); Platelet Count* 304 K/uL (140-440); RDW Coefficient of Variation % 11.7 % (11.5-15.5); Red Blood Count 5.19 m/uL (4.30-5.90); White Blood Count* 7.17 K/uL (4.50-11.00)
[2024-03-18 06:34] LABS: Slide Review Reflex Yes
[2024-03-18 07:16] LABS: Chloride* 101 mmol/L (96-114); Potassium* 4.1 mmol/L (3.6-5.1); Sodium* 135 mmol/L (135-149)
[2024-03-18 07:18] LABS: Est. Creatinine Clearance* 85.07; Estimated Glomerular Filt Rate 95 ml/min
[2024-03-18 07:19] LABS: Anion Gap 8 mEq/L (7-15); Blood Urea Nitrogen* 17 mg/dL (5-24); Calcium* 9.1 mg/dL (8.4-10.6); Carbon Dioxide* 26 mmol/L (20-32); Glucose* 102 mg/dL (60-115)
[2024-03-18 07:20] LABS: Magnesium* 2.2 mg/dL (1.5-2.6)
[2024-03-18 07:22] LABS: C Reactive Protein* 4.3 mg/dL (0.5-1.0)
[2024-03-18 07:29] LABS: Slide Review Acceptable Review (Acceptable)
[2024-03-18 07:36] LABS: Procalcitonin* 0.05 ng/mL (<0.50)
[2024-03-18] MEDS: SODIUM CHLORIDE 0.9 % (FLUSH) 10 ML SYRINGE 5 ML IVF ×2 (09:02→20:57)
--- NOTE | 2024-03-18 11:04 | PM.IMPN1 ---
Progress Note: A&P Assessment and plan (1) Acute hypoxic respiratory failure: Problem details: - presumed infectious given fever and sick contacts (viral vs bacterial), ddx includes atypical pneumonia or malignancy - negative for RSV/flu/COVID, strep pneumo or Legionella, HIV - CTA negative for PE, concern for possible fungal vs Mycobacterium On high-flow oxygen last night. Now on nasal cannula at 3 L. Status: Acute (2) Atypical pneumonia: Problem details: This is likely the cause of his hypoxia. Clinically he is improving. Etiology is uncertain. Testing so far has been negative for RSV, influenza, COVID, Legionella, strep pneumo. Urine antigens for histo and blasto mycoses pending. I favor mycoplasma as the cause of his illness. On ceftriaxone and azithromycin Status: Acute Plan Continue in hospital until no longer hypoxic. Continue standard treatment for community-acquired pneumonia with ceftriaxone and azithromycin Time Spent With Patient Total time spent: Total time spent today is 50 minutes in coordination of care and discussing with patient and his and other providers ongoing evaluation and management of atypical pneumonia Subjective Date Seen: 03/18/24 Interval history: 43-year-old male admitted to the hospital with respiratory illness starting 9 days prior to admission. Initially had fever, chills, cough, loss of appetite, fatigue, malaise and vomiting. After about a week he was feeling better but then became quite dyspneic in the last few days. Because of that he went to clinic where he was found to be hypoxic and was referred to the emergency department. His and children were ill in the past 3 weeks as well. His was treated with a Zithromax in and prednisone for her asthma and got better quickly. His 11-year-old daughter was treated with a Zithromax in for otitis media and got better. No history of chronic lung disease. No immuno compromising conditions. Remote history of smoking having quit about 15 years ago. No occupational exposures. 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 03/18/2024: Patient reports fever is gone. Appetite has returned, constitutional symptoms are largely resolved. Cough is also much improved. Appetite is back. He is still requiring oxygen. Overnight he was on high-flow oxygen. Today he is on 3 L per nasal cannula and reports breathing comfortably. Exam Narrative: Exam Narrative: He is alert and appears in no distress. Speech is normal. Eyes normal. Oropharynx normal. Respirations are clear to auscultation with coarse breath sounds but no wheezing or consolidation. Cardiovascular: S1, S2, regular rate and rhythm. No murmur gallop or rub. Abdomen is soft without tenderness. Extremities without edema. Const: Vital Signs, click to edit/add: Vital Signs - 24 hr 03/17/24 12:00 03/17/24 14:00 03/17/24 14:31 Temperature Pulse Rate Pulse Rate [Left P ulse Oximeter] Respiratory Rate 16 Blood Pressure [Le ft Arm] Blood Pressure [Ri ght Arm] Pulse Oximetry 90 Oxygen Delivery Me thod High Flow Nasal Ca nnula Oxygen Flow Rate 30 Fraction of Inspir ed Oxygen 30 30 30 03/17/24 15:00 03/17/24 15:00 03/17/24 15:00 Temperature 98.3 F Pulse Rate 75 Pulse Rate [Left P ulse Oximeter] 79 81 Respiratory Rate 16 16 Blood Pressure [Le ft Arm] 110/69 Blood Pressure [Ri ght Arm] Pulse Oximetry 91 Oxygen Delivery Me thod High Flow Nasal Ca nnula Oxygen Flow Rate 30 Fraction of Inspir ed Oxygen 30 03/17/24 16:00 03/17/24 17:28 03/17/24 20:00 Temperature Pulse Rate Pulse Rate [Left P ulse Oximeter] Respiratory Rate Blood Pressure [Le ft Arm] Blood Pressure [Ri ght Arm] Pulse Oximetry Oxygen Delivery Me thod Oxygen Flow Rate 25 Fraction of Inspir ed Oxygen 30 35 35 03/17/24 20:00 03/17/24 22:00 03/17/24 23:00 Temperature 98.7 F Pulse Rate Pulse Rate [Left P ulse Oximeter] 76 Respiratory Rate 20 20 Blood Pressure [Le ft Arm] Blood Pressure [Ri ght Arm] 120/71 Pulse Oximetry 93 90 Oxygen Delivery Me thod High Flow Nasal Ca nnula High Flow Nasal Ca nnula Oxygen Flow Rate 25 Fraction of Inspir ed Oxygen 35 35 03/17/24 23:00 03/17/24 23:00 03/17/24 23:30 Temperature 98.6 F Pulse Rate 69 Pulse Rate [Left P ulse Oximeter] 72 Respiratory Rate 20 20 Blood Pressure [Le ft Arm] Blood Pressure [Ri ght Arm] 109/71 Pulse Oximetry 93 Oxygen Delivery Me thod High Flow Nasal Ca nnula Oxygen Flow Rate 25 Fraction of Inspir ed Oxygen 40 03/18/24 00:00 03/18/24 02:00 03/18/24 04:00 Temperature Pulse Rate Pulse Rate [Left P ulse Oximeter] Respiratory Rate Blood Pressure [Le ft Arm] Blood Pressure [Ri ght Arm] Pulse Oximetry Oxygen Delivery Me thod Oxygen Flow Rate Fraction of Inspir ed Oxygen 40 40 40 03/18/24 06:00 03/18/24 06:00 03/18/24 07:10 Temperature Pulse Rate 72 Pulse Rate [Left P ulse Oximeter] Respiratory Rate 18 Blood Pressure [Le ft Arm] Blood Pressure [Ri ght Arm] Pulse Oximetry Oxygen Delivery Me thod Oxygen Flow Rate Fraction of Inspir ed Oxygen 40 03/18/24 07:37 03/18/24 07:45 03/18/24 08:00 Temperature 98.0 F Pulse Rate Pulse Rate [Left P ulse Oximeter] 82 Respiratory Rate 18 18 Blood Pressure [Le ft Arm] 108/73 Blood Pressure [Ri ght Arm] Pulse Oximetry 93 93 Oxygen Delivery Me thod High Flow Nasal Ca nnula High Flow Nasal Ca nnula Oxygen Flow Rate 25 25 Fraction of Inspir ed Oxygen 40 40 40 03/18/24 10:27 Temperature 97.8 F Pulse Rate Pulse Rate [Left P ulse Oximeter] 70 Respiratory Rate 18 Blood Pressure [Le ft Arm] Blood Pressure [Ri ght Arm] 107/74 Pulse Oximetry 93 Oxygen Delivery Me thod Nasal Cannula Oxygen Flow Rate 3 Fraction of Inspir ed Oxygen Documenting provider has reviewed patient's vital signs: yes Labs Labs: Laboratory Results - last 24 hr 03/18/24 06:11 WBC 7.17 RBC 5.19 Hgb 15.6 Hct 46.1 MCV 89 MCH 30 MCHC 34 RDW Coeff of Yamileth 11.7 Plt Count 304 Neut % (Auto) 59.0 Lymph % (Auto) 27.5 [place] % (Auto) 7.3 Eos % (Auto) 3.6 Baso % (Auto) 0.6 Neut # (Auto) 4.24 Lymph # (Auto) 1.97 [place] # (Auto) 0.50 Eos # (Auto) 0.26 Baso # (Auto) 0.04 Abs Immat Gran (auto) 0.14 Imm/Tot Granulo (auto) 2.0 Diff Slide Review Acceptable Review VBG pH 7.438 H VBG pCO2 36 L VBG pO2 56.5 H VBG HCO3 24 Sodium 135 Potassium 4.1 Chloride 101 Carbon Dioxide 26 Anion Gap 8 BUN 17 Creatinine 1.0 Estimated Creat Clear 85.07 Estimated GFR 95 Glucose 102 Lactate 1.2 Calcium 9.1 Magnesium 2.2 C-Reactive Protein 4.3 H Procalcitonin 0.05
--- NOTE | 2024-03-18 17:42 | PC.NURSE ---
Pt alert and oriented. Pt had no complaints of pain. Pt up independently in room. Pt went for 1 walk in hallway. Pt weaned off high flow O2 and is currently on 3 Liters and tolerating well with saturations 92-98%. Per RT Pt?s saturations are okay to be 88% or higher when sleeping.?
[2024-03-18] MEDS: cefTRIAXone 2 GM in 0.9 % SODIUM CHLORIDE Mini-bag 100 ML IVPB (18:27)
[2024-03-18] MEDS: AZITHROMYCIN 250 MG TABLET 500 MG PO (18:27)
[2024-03-19 03:15] VITALS: PULSE 56; O2SAT 91
--- NOTE | 2024-03-19 06:08 | PC.NURSE ---
End of shift [id number]: Tolerated 3L nasal canula overnight maintaining sats >90%. VSS otherwise stable. Up at chinyere in room. Reporting an intermittent cough but feels like it is getting better. Denies pain. Using call light appropriately.
[2024-03-19 07:00] VITALS: RESP 16; O2SAT 94
[2024-03-19 07:25] VITALS: BP 104/66; PULSE 73; RESP 16; TEMP 36.5; O2SAT 94
[2024-03-19] MEDS: SODIUM CHLORIDE 0.9 % (FLUSH) 10 ML SYRINGE 5 ML IVF (09:13)
--- NOTE | 2024-03-19 09:45 | P.IMPN_ITS ---
Progress Note: A&P Assessment and plan (1) Acute hypoxic respiratory failure: Problem details: - presumed infectious given fever and sick contacts (viral vs bacterial), ddx includes atypical pneumonia or malignancy - negative for RSV/flu/COVID, strep pneumo or Legionella, HIV - CTA negative for PE, concern for possible fungal vs Mycobacterium Now on nasal cannula at 2 L. anticipate discharge to home when weaned off oxygen Status: Acute (2) Atypical pneumonia: Problem details: This is likely the cause of his hypoxia. Clinically he is improving. Etiology is uncertain. Testing so far has been negative for RSV, influenza, COVID, Legionella, strep pneumo. Urine antigens for histo and blasto mycoses pending. I favor mycoplasma as the cause of his illness. On ceftriaxone and azithromycin Status: Acute Plan Continue in hospital for antibiotics and oxygen. Can be discharged to home when weaned off oxygen. Time Spent With Patient Total time spent: Total time spent today is 30 minutes in coordination of care discussing with lynda beard and other providers ongoing evaluation management of pneumonia Subjective Date Seen: 03/19/24 Interval history: 43-year-old male admitted to the hospital with respiratory illness starting 9 days prior to admission. Initially had fever, chills, cough, loss of appetite, fatigue, malaise and vomiting. After about a week he was feeling better but then became quite dyspneic in the last few days. Because of that he went to clinic where he was found to be hypoxic and was referred to the emergency department. His and children were ill in the past 3 weeks as well. His was treated with a Zithromax in and prednisone for her asthma and got better quickly. His 11-year-old daughter was treated with a Zithromax in for otitis media and got better. No history of chronic lung disease. No immuno compromising conditions. Remote history of smoking having quit about 15 years ago. No occupational exposures. 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 03/18/2024: Patient reports fever is gone. Appetite has returned, constitutional symptoms are largely resolved. Cough is also much improved. Appetite is back. He is still requiring oxygen. Overnight he was on high-flow oxygen. Today he is on 3 L per nasal cannula and reports breathing comfortably. 03/19/2024: Patient reports continue to improve. Now on oxygen and at at 2 L per nasal cannula. No more fever. Minimal cough which is nonproductive. Shena etite is good. energy is good. Exam Narrative: Exam Narrative: He is alert and appears in no distress. Breathing is unlabored on 2 L per nasal cannula. Respirations with few coarse breath sounds at the lung bases but otherwise clear. No wheezing no consolidation. Cardiovascular: S1, S2, regular rate and rhythm. Abdomen is soft without tenderness. Const: Vital Signs, click to edit/add: Vital Signs - 24 hr 03/18/24 10:27 03/18/24 14:33 03/18/24 14:35 Temperature 97.8 F 97.8 F Pulse Rate [Left P ulse Oximeter] 70 88 Respiratory Rate 18 18 18 Blood Pressure [Le ft Arm] 99/61 Blood Pressure [Ri ght Arm] 107/74 Pulse Oximetry 93 93 93 Oxygen Delivery Me thod Nasal Cannula Room Air Room Air Oxygen Flow Rate 3 3 Fraction of Inspir ed Oxygen 03/18/24 19:16 03/18/24 22:38 03/18/24 22:39 Temperature 98.6 F Pulse Rate [Left P ulse Oximeter] 63 56 L Respiratory Rate 18 Blood Pressure [Le ft Arm] Blood Pressure [Ri ght Arm] 104/67 Pulse Oximetry 95 94 94 Oxygen Delivery Me thod Nasal Cannula Nasal Cannula Nasal Cannula Oxygen Flow Rate 3 3 3 Fraction of Inspir ed Oxygen 03/18/24 22:40 03/19/24 03:15 03/19/24 07:00 Temperature Pulse Rate [Left P ulse Oximeter] 56 L Respiratory Rate 18 16 Blood Pressure [Le ft Arm] Blood Pressure [Ri ght Arm] Pulse Oximetry 91 94 Oxygen Delivery Me thod Nasal Cannula Nasal Cannula Oxygen Flow Rate 3 3 Fraction of Inspir ed Oxygen 40 03/19/24 07:25 03/19/24 07:25 Temperature 97.7 F Pulse Rate [Left P ulse Oximeter] 73 73 Respiratory Rate 16 16 Blood Pressure [Le ft Arm] Blood Pressure [Ri ght Arm] 104/66 Pulse Oximetry 94 Oxygen Delivery Me thod Room Air Oxygen Flow Rate Fraction of Inspir ed Oxygen Documenting provider has reviewed patient's vital signs: yes
[2024-03-19 11:00] VITALS: BP 113/75; PULSE 68; RESP 18; TEMP 36.8; O2SAT 91
[2024-03-19] MEDS: AZITHROMYCIN 250 MG TABLET 500 MG PO (11:46)
[2024-03-19] MEDS: cefTRIAXone 2 GM in 0.9 % SODIUM CHLORIDE Mini-bag 100 ML IVPB (11:47)
--- NOTE | 2024-03-19 11:51 | PM.DS1 ---
DS: Providers Provider Date Seen: 03/19/24 Date of admission: 03/16/24 15:41 Primary care physician: Liban Soni MD Admitting Clinician: Martha Marinelli MD Attending Physician on discharge: Milan Hughes MD Date of Discharge: 03/19/24 DS: Diagnosis Discharge Diagnosis (1) Atypical pneumonia: Status: Acute Problem details: This is likely the cause of his hypoxia. Clinically he is improving. Etiology is uncertain. Testing so far has been negative for RSV, influenza, COVID, Legionella, strep pneumo. Urine antigens for histo and blasto mycoses pending. I favor mycoplasma as the cause of his illness. On ceftriaxone and azithromycin (2) Acute hypoxic respiratory failure: Status: Acute Problem details: - presumed infectious given fever and sick contacts (viral vs bacterial), ddx includes atypical pneumonia or malignancy - negative for RSV/flu/COVID, strep pneumo or Legionella, HIV - CTA negative for PE, concern for possible fungal vs Mycobacterium Now on nasal cannula at 2 L. anticipate discharge to home when weaned off oxygen (3) Fever: Status: Acute (4) Hyponatremia: Status: Acute Problem details: secondary to illness, poor appetite. Resolved DS: Summary Hospital Course Hospital Course: 43-year-old male admitted to the hospital with respiratory illness starting 9 days prior to admission. Initially had fever, chills, cough, loss of appetite, fatigue, malaise and vomiting. After about a week he was feeling better but then became quite dyspneic in the last few days. Because of that he went to clinic where he was found to be hypoxic and was referred to the emergency department. His and children were ill in the past 3 weeks as well. His was treated with a Zithromax in and prednisone for her asthma and got better quickly. His 11-year-old daughter was treated with a Zithromax in for otitis media and got better. No history of chronic lung disease. No immuno compromising conditions. Remote history of smoking having quit about 15 years ago. No occupational exposures. 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 During his hospital stay he was treated with ceftriaxone, azithromicin and oxygen. Today has finished antibiotics and weaned off oxygen. Fever and other constitutional symptoms have resolved Status at Discharge Functional status at discharge: independent ambulation Overall status at discharge: patient is progressing back to baseline Time Spent with Patient Time attestation: Total time spent providing and/or coordinating discharge services: 40mins Time spent: Greater than 30 minutes Exam Narrative: Exam Narrative: He is alert and in no distress. Lungs clear with somewhat coarse breath sounds in lung bases. Const: Vital Signs, click to edit/add: Vital Signs - 24 hr 03/18/24 14:33 03/18/24 14:35 03/18/24 19:16 Temperature 97.8 F 98.6 F Pulse Rate [Left P ulse Oximeter] 88 63 Respiratory Rate 18 18 18 Blood Pressure [Le ft Arm] 99/61 Blood Pressure [Ri ght Arm] 104/67 Pulse Oximetry 93 93 95 Oxygen Delivery Me thod Room Air Room Air Nasal Cannula Oxygen Flow Rate 3 3 Fraction of Inspir ed Oxygen 03/18/24 22:38 03/18/24 22:39 03/18/24 22:40 Temperature Pulse Rate [Left P ulse Oximeter] 56 L Respiratory Rate 18 Blood Pressure [Le ft Arm] Blood Pressure [Ri ght Arm] Pulse Oximetry 94 94 Oxygen Delivery Me thod Nasal Cannula Nasal Cannula Oxygen Flow Rate 3 3 Fraction of Inspir ed Oxygen 03/19/24 03:15 03/19/24 07:00 03/19/24 07:25 Temperature 97.7 F Pulse Rate [Left P ulse Oximeter] 56 L 73 Respiratory Rate 16 16 Blood Pressure [Le ft Arm] Blood Pressure [Ri ght Arm] 104/66 Pulse Oximetry 91 94 94 Oxygen Delivery Me thod Nasal Cannula Nasal Cannula Room Air Oxygen Flow Rate 3 3 Fraction of Inspir ed Oxygen 40 03/19/24 07:25 03/19/24 11:00 Temperature 98.2 F Pulse Rate [Left P ulse Oximeter] 73 68 Respiratory Rate 16 18 Blood Pressure [Le ft Arm] Blood Pressure [Ri ght Arm] 113/75 Pulse Oximetry 91 Oxygen Delivery Me thod Room Air Oxygen Flow Rate Fraction of Inspir ed Oxygen Documenting provider has reviewed patient's vital signs: yes DS: Data Imaging CT scan - chest: Radiologist's impression: INDICATION: Hypoxia. Shortness of breath. TECHNIQUE: Axial intravenously infused CT cuts were performed from the thoracic inlet to the upper abdomen during the peak phase of pulmonary arterial contrast opacification. 95 mL of Isovue-370 has been injected intravenously. COMPARISON: Plain radiograph 03/16/2024. Findings : There are no pulmonary emboli. There is no aortic aneurysms or dissections. There are innumerable minute nodules throughout both lungs. There is mild dependent atelectasis in both lower lobes. There is a trace of pleural fluid bilaterally. There is no pericardial effusion. There are no enlarged hilar, mediastinal or axillary lymph nodes. There are few small liver cysts. The spleen, pancreas, adrenals and upper poles of both kidneys appear normal. There are no lytic sclerotic skeletal lesions. IMPRESSION: 1. Negative for pulmonary emboli. 2. There are innumerable minute bilateral pulmonary nodules. Considerations would include fungal infection and typical or atypical mycobacterial infections. Discharge Plan Discharge Disposition: Home, Self-Care Date of Admission: 03/16/24 15:41 Attending Provider on Discharge: Chinyere Fleming Discharge Medications: No Action No Known Home Medications Discharge Orders: Discharge Order (Routine); Ordered 03/19/24 Ordered By: Chinyere Fleming Patient Education: Bacterial Pneumonia (GEN) Activity Level: Activity as Tolerated Discharge Diet: Regular Follow Up Appointments: Liban Soni MD [Primary Care Provider] - (post hospital follow up 3-5 days) Forms: [employer] Info Instructions
--- NOTE | 2024-03-19 15:02 | PC.NURSE ---
DC: Pt alert, oriented and vitally stable. Pt weaned off o2 via NC, tolerating well, sats remaining 90 and above throughout shift. Pt up independently and tolerate well. Pt walking in the paz with portable o2 and mask, tolerating well. IV in left AC infiltrated, tip intact upon removal, new IV placed in left wrist to finish IV antibiotics, then removed tip intact. PT and spouse provided with DC education, topics including follow up and symptoms worsening. DC home with spouse at 1406
== END 2024-03-19 14:06 | disposition home or self-care (01) | DRG 133 ==
LOC: ED 11:11 → MEDSURG 15:22
PROVIDERS: Internal Medicine; Admitting Provider Family Medicine; Emergency Provider Emergency Medicine Emergency Medical Services; PCP Family Medicine; Visit Provider Family Medicine
DX: J96.01 Acute respiratory failure with hypoxia (principal); J18.9 Pneumonia, unspecified organism; Z87.891 Personal history of nicotine dependence; R50.9 Fever, unspecified; E87.1 Hypo-osmolality and hyponatremia
CPT/HCPCS: 36415; 71275; 80048; 80053; 82803; 83605; 83735; 84145; 85025; 86140; 86703; 87070; 87385; 87449; 87631; 87635; 87804; 87899; 94640; 94664; 94761; 99284; 99285; A9270; J0696; J1100; Q9967

== ENCOUNTER 2024-03-24 14:04 | Outpatient (CLI) | payer BC, SELFPAY ==
--- OUTSIDE RECORDS SUMMARY | 2024-03-24 14:13 | XMS_ITS | Data Portability ---
Author Organization ID - [facility], [facility] Address [address] [place] [address] Assessment No assessment recorded. Plan of Treatment Reminders Order Date Submit Date Provider Last Modified By Organization Details Last Modified Time Details Appointments None recorded. [facility] urinalysis, dipstick [facility], [address], [address], [place], [address], 16:22:58 Referral None recorded. Procedures None recorded. Surgeries None recorded. Imaging None recorded. Medication Orders cephalexin 500 mg capsule 2020 021 [email or web address] 9 [facility], [address] [place], [address], 16:19:40 Patient TargetsNo targets recorded. Patient Instructions Encounter Date Encounter Id Patient Instructions Last Modified By Organization Details Last Modified Time 09/28/2020 [id number] will styart on keflex TID for 15 days and plan recheck in a month. [email or web address] Not available 09/28/2020 10:32:54 11/02/[id number] will call if sx' s worsen for another course of abx but expect sx's will decrease over next 4-6 weeks. [email or web address] Not available 11/02/2020 16:39:29 Reason for Referral None Reported. Results Created Date Observation Date Name Description Value Unit Range Abnormal Flag Note LastModifiedBy Organization Detail LastModifiedTime 11/02/2020 urina lysis , dipst ick Color-Status Yellow Not Available [facility]_ michael [facility] [address], [place], [address], 11/02/2020 16:17:24 11/02/2020 urina lysis , dipst ick Clarity-Stat us Clear Not Available _beth bustamante [facility] [address], [place], [address], 11/02/2020 16:17:24 11/02/2020 urina lysis , dipst ick pH-Status 6.5 Not Available [facility]_ramon love [facility] [address], [place], [address], 11/02/2020 16:17:24 Result Notes None recorded. Problems Name Problem SNOMED Code Status Onset Date Resolution Date Notes Provider Name and Address Organization Details Recorded Time Pain in scrotum Active 021 Larisa Nava [facility], [facility] 09/28/2020 09:54:26 Problem Notes None recorded. Medical Equipment None Reported. Allergies No known drug allergies Medications Name Sig Start Date Stop Date Status Note LastModified by Organization Details LastModified Time cephalexin 500 mg capsule Take 1 capsule every 8 hours by oral route for 15 days. 11/02 completed Not Available Not Available Not Available Vitals Date Recorded Body height Body mass index (BMI) Body weight Provider Name and Address Organization Details Last Updated DateTime 09/28/2020 182.88 cm 23.7 kg/m2 28209.66 g Larisa Nava [facility] 09/28/2020 09:53:57 Date Recorded Body height Body mass index (BMI) Body weight Provider Name and Address Organization Details Last Updated DateTime 11/02/2020 182.88 cm 23.7 kg/m2 00356.66 g Joe Green MD [address], [place], [address], [facility] 11/02/2020 16:16:50 Social History Question Answer Notes LastModified by Organizat ion Details LastModified Time Tobacco Smoking Status Former Smoker Larisa Nava [facility] 09/28/2020 09:54:59 What Is Your Level Of Alcohol Consumption? None Information not available 09/28/2020 What Is Your Level Of Caffeine Consumption? Occasional Information not available 09/28/2020 What Was The Date Of Your Most Recent Tobacco Screening? 11/02/2020 [email or web address] Information not available 11/02/2020 Sex: Unknown Functional Status None recorded. Mental Status None recorded. Family History Relationship Description Onset Age of this Age Resolved Age Notes LastModified by Organization Details LastModified Time Father No current problems or disability [email or web address] Not available 09/28 09:54:31 Mother No current problems or disability [email or web address] Not available 09/28 09:54:31 Medical History Condition Response Other N High Blood Pressure N Kidney Stones Y Lung Disease N Depression N GERD/Acid Reflux N Sexually Transmitted Infection N Cancer N High Cholesterol N Diabetes N Bleeding Disorder N Heart Disease N Past Encounters Encounter ID Performer Location Encounter Start Date Encounter Closed Date Diagnosis/Indication Diagnosis SNOMED-CT Code Diagnosis ICD10 Code [id number] Joe Green MD [facility] [place] [address] 09/28/2020 09:43:59 10/01/2020 09:45:40 Epididymitis 71560416 N45.1 [id number] Joe Green MD [place] [address] [place] [address] 11/02/2020 16:05:56 11/05/2020 13:07:17 Pain in scrotum 81330382 N50.82 Health Concerns Section Related Observation LastModified by Organization Detai ls LastModified Time None Recorded Concern Status LastModified by Organization Details LastModified Time None Recorded Advance Directives Directive None Recorded Payers Encounter Date Sequence Insurance Name Policy Number Policy Silverio Covered Member ID Silverio Member ID Guarantor Name 09/28/2020 1 [facility] [id number] Chas Kline [id number] Chas Kline 11/02/2020 1 [facility] [id number] Chas Restrepoan [id number] Chas J Raisa Notes Date Note Type Note Provider Name and Address Organization Details Recorded Time 09/28/2020 text/html 40 year started 1.5 month ago started with left testis pain and then started getting on right side too, intermittent without inciting factors. felt some swelling in the epididymal area on both sides. sx's do not last for long time. had U/S done through PCP and showed slight thickening of the left epididymis. now feeling more of a left side heaviness/thickeni ng and some radiation up into left groin and bilateral testis sensitive. better in AM and gets worse through the day./ Joe Green MD [address] [place] [address],[address] [place] [address], [address], [facility] 09/28/2020 10:33:21 11/02/2020 text/html follow up epididymitis, 3 week course of keflex, still some bother on that side. did not seem to get worse after the abx done. Joe Green MD [address] [place] [address],[address], [place], [address], [facility] 11/02/2020 16:39:49
== END 2024-03-24 14:05 | disposition home or self-care (01) ==
PROVIDERS: PCP Family Medicine; Visit Provider Family Medicine
DX: J18.9 Pneumonia, unspecified organism (principal)
CPT/HCPCS: 86140

== ENCOUNTER 2024-04-03 08:55 | Outpatient (CLI) | payer BC, SELFPAY ==
--- OUTSIDE RECORDS SUMMARY | 2024-04-03 08:58 | XMS_ITS | Data Portability ---
Author Organization [place] - [facility], [facility] Address [address] [place] [address] Assessment No assessment recorded. Plan of Treatment Reminders Order Date Submit Date Provider Last Modified By Organization Details Last Modified Time Details Appointments None recorded. Lab urinalysis, dipstick 2020 [facility], [address], [place], [address], 16:22:58 Referral None recorded. Procedures None recorded. Surgeries None recorded. Imaging None recorded. Medication Orders cephalexin 500 mg capsule 2020 021 [email or web address] 9 [facility], [address] [place], [address], 16:19:40 Patient TargetsNo targets recorded. Patient Instructions Encounter Date Encounter Id Patient Instructions Last Modified By Organization Details Last Modified Time 09/28/2020 [id number] will styart on keflex TID for 15 days and plan recheck in a month. Not available 09/28/2020 10:32:54 11/02/[id number] will call if sx' s worsen for another course of abx but expect sx's will decrease over next 4-6 weeks. Not available 11/02/2020 16:39:29 Reason for Referral None Reported. Results Created Date Observation Date Name Description Value Unit Range Abnormal Flag Note LastModifiedBy Organization Detail LastModifiedTime 11/02/2020 urina lysis , dipst ick Color-Status Yellow Not Available [facility] m[facility] [address], [place], [address], 11/02/2020 16:17:24 11/02/2020 urina lysis , dipst ick Clarity-Stat us Clear Not Available _beth bustamante [facility] [address], [place], [address], 11/02/2020 16:17:24 11/02/2020 urina lysis , dipst ick pH-Status 6.5 Not Available [facility]ramon love [facility] [address], [place], [address], 11/02/2020 16:17:24 Result Notes None recorded. Problems Name Problem SNOMED Code Status Onset Date Resolution Date Notes Provider Name and Address Organization Details Recorded Time Pain in scrotum Active 021 Larisa Nava [facility], [facility] 09/28/2020 09:54:26 Problem Notes None recorded. Medical [...] Updated DateTime 09/28/2020 182.88 cm 23.7 kg/m2 95436.66 g Larisa Nava [facility] 09/28/2020 09:53:57 Date Recorded Body height Body mass index (BMI) Body weight Provider Name and Address Organization Details Last Updated DateTime 11/02/2020 182.88 cm 23.7 kg/m2 60795.66 g Joe Green MD [address], [place], [address], [facility] 11/02/2020 16:16:50 Social History Question Answer Notes LastModified by Organizat ion Details LastModified Time Tobacco Smoking Status Former Smoker Larisa Nava [facility] 09/28/2020 09:54:59 What Is Your Level Of Alcohol Consumption? None Information not available 09/28/2020 What Is Your Level Of Caffeine Consumption? Occasional Information not available 09/28/2020 What Was The Date Of Your Most Recent Tobacco Screening? 11/02/2020 [email or web address] Information not available 11/02/2020 Sex: Unknown Functional Status None recorded. Mental Status None recorded. Family History Relationship Description Onset Age of this Age Resolved Age Notes LastModified by Organization Details LastModified Time Father No current problems or disability [email or web address] Not available 09/28 09:54:31 Mother No current problems or disability [email or web address] Not available 09/28 09:54:31 Medical History Condition Response Diabetes N Sexually Transmitted Infection N Bleeding Disorder N Other N High Blood Pressure N Kidney Stones Y Cancer N Depression N Lung Disease N High Cholesterol N GERD/Acid Reflux N Heart Disease N Past Encounters Encounter ID Performer Location Encounter Start Date Encounter Closed Date Diagnosis/Indication Diagnosis SNOMED-CT Code Diagnosis ICD10 Code [id number] Joe Green MD [facility] [place] [address] 09/28/2020 09:43:59 10/01/2020 09:45:40 Epididymitis 24669574 N45.1 [id number] Joe Green MD [place] [address] [place] [address] 11/02/2020 16:05:56 11/05/2020 13:07:17 Pain in scrotum 76466778 N50.82 Health Concerns Section Related Observation LastModified by Organization Detai ls LastModified Time None Recorded Concern Status LastModified by Organization Details LastModified Time None Recorded Advance Directives Directive None Recorded Payers Encounter Date Sequence Insurance Name Policy Number Policy Silverio Covered Member ID Silverio Member ID Guarantor Name 09/28/2020 1 [facility] [id number] Chas Kline [id number] Chas Kline 11/02/2020 1 [facility] [id number] Chas Restrepoan [id number] Chas J Raisa Notes Date Note Type [...] worse through the day./ Joe Green MD [address] [place] [address],[address] [place] [address], [address], [facility] 09/28/2020 10:33:21 11/02/2020 text/html follow up epididymitis, 3 week course of keflex, still some bother on that side. did not seem to get worse after the abx done. Joe Green MD [address] [place] [address],[address], [place], [address], [facility] 11/02/2020 16:39:49
--- NOTE | 2024-04-03 09:15 | CRLHL7_ITS ---
For Patients: As a result of the Cures Act, medical imaging exams and procedure reports are released immediately into your electronic medical record. You may view this report before your referring provider. If you have questions, please contact your health care provider. INDICATION: Pneumonia, unspecified organism. TECHNIQUE: Ultrasound abdomen limited. Sonographic images of the right upper quadrant were obtained using buckley-scale and color Doppler images. COMPARISON: CT scan of the abdomen and pelvis 04/25/2013. FINDINGS: Liver: Simple hepatic cyst measuring 2.0 x 2.1 x 2.2 centimeters within the right hepatic lobe. No intrahepatic solid mass or duct dilatation. Patent portal vein with hepatopetal flow. Gallbladder: Multiple gallbladder wall polyps measuring up to 5 millimeters. No gallstones, other wall abnormality or pericholecystic fluid. Common bile duct: Common bile duct is not visualized. Pancreas: Unremarkable. Right kidney: Normal in size. The right kidney is normal in size, shape and echotexture. It measures 11.1 centimeters in length and has a cortex thickness of 1.5 cm. Vasculature: Patent IVC. Normal caliber abdominal aorta. IMPRESSION: 1. 2.2 centimeter right hepatic lobe cyst. 2. Multiple gallbladder wall polyps measuring up to 5 mm. Dictated by Addy Srinivasan MD @ 04/04/2024 9:06:31 AM (Electronically Signed)
== END 2024-04-03 08:56 | disposition home or self-care (01) ==
LOC: US 08:55
PROVIDERS: PCP Family Medicine; Visit Provider Family Medicine
DX: J18.9 Pneumonia, unspecified organism (principal); K76.89 Other specified diseases of liver
CPT/HCPCS: 76705

== ENCOUNTER 2024-05-05 10:36 | Outpatient (CLI) | payer BC, SELFPAY | END 2024-05-05 10:37 | disposition home or self-care (01) | PROVIDERS: PCP Family Medicine; Visit Provider Family Medicine | DX: E78.00 Pure hypercholesterolemia, unspecified (principal); K76.89 Other specified diseases of liver; Z12.5 Encounter for screening for malignant neoplasm of prostate | CPT/HCPCS: 80061; 80076; 86900; 86901; G0103 ==

== ENCOUNTER 2024-05-09 08:40 | Outpatient (CLI) | payer BC, SELFPAY ==
--- NOTE | 2024-05-09 09:00 | CRLHL7_ITS ---
For Patients: As a result of the 21st Century Cures Act, medical imaging exams and procedure reports are released immediately into your electronic medical record. You may view this report before your referring provider. If you have questions, please contact your health care provider. INDICATION: RLQ PAIN X 6 MONTHS TECHNIQUE: A CT volumetric acquisition was performed of the abdomen and pelvis without intravenous contrast. Please note that all CT scans at this facility use dose modulation, iterative reconstruction, and/or weight-based dosing when appropriate to reduce radiation dose to as low as reasonably achievable. COMPARISON: 04/25/2013 FINDINGS: The CT images demonstrate normal aeration of the lung bases. There is no evidence of pleural or pericardial fluid. Incidental intrahepatic cysts are present measuring up to 2 cm. The spleen is of normal size. There is no evidence of mass effect or inflammation within the pancreas. The gallbladder and bile ducts appear normal. The adrenal glands have normal morphology. The kidneys are of normal size and there is no evidence of a calculus within either kidney or ureter and there is no evidence of hydronephrosis. The small and large bowel loops appear normal and there are no abnormalities noted within the small bowel mesentery or greater omentum. Moderately increased stool in the right side of the colon. The aorta and IVC appear normal. There is no evidence of retroperitoneal lymphadenopathy. The prostate gland and urinary bladder appear normal. There is no evidence of a ventral abdominal wall hernia. A few scattered incidental bone islands are present. There is no fracture. Mild anterior spurring L1-2. Chronic posterior disc protrusion L5-S1. Normal appendix measuring less than 6 millimeters. No adjacent inflammation. IMPRESSION: Normal appendix. No acute inflammation. Increased stool in the cecum could suggest chronic constipation. No bowel obstruction. Please note that all CT scans at this facility use dose modulation, iterative reconstruction, and/or weight-based dosing when appropriate to reduce radiation dose to as low as reasonably achievable. Dictated by Chaitanya Guaman MD @ 05/09/2024 11:05:57 AM (Electronically Signed)
== END 2024-05-09 08:41 | disposition home or self-care (01) ==
LOC: CT 08:41
PROVIDERS: PCP Family Medicine; Visit Provider Family Medicine
DX: R10.31 Right lower quadrant pain (principal)
CPT/HCPCS: 74176